=== PATIENT | male | born 1950 | race Caucasian/White ===

== ENCOUNTER 2022-02-05 17:35 | Observation (INO) ==
[2022-02-05] MEDS ORDERED: Iodixanol (CONTRAST) 320 MG/ML 100 ML SDV IV ONE (18:22)
[2022-02-05 18:30] LABS: ABS Eosinophils 0.2 10^3/ul (0-0.6); ABS Monocytes 0.5 10^3/ul (0-0.8); ABS Neutrophils 3.6 10^3/ul (1.5-7.7); Eosinophil % 3.4 %; Hematocrit 42 % (42-52); Hemoglobin 13.9 g/dL (14.0-18.0); Lymphocyte % 31.5 %; Mean Corpuscular HGB Conc 33 g/dL (31-36); Mean Corpuscular Hemoglobin 29 pg (27-31); Mean Corpuscular Volume 89 fL (80-94); Mean Platelet Volume 7.8 fL (7.4-10.4); Platelet Count 132 10^3/uL (150-450); Red Blood Count 4.71 10^6 /uL (4.18-5.48); Red Cell Distribution Width 14 % (10-15); White Blood Count 6.5 10^3/uL (3.5-10.8)
[2022-02-05 18:43] LABS: Activated Partial Thrombo Time 26.1 seconds (26.0-38.0); INR 1.02 (0.89-1.11)
[2022-02-05 19:12] LABS: ALT 22 U/L (7-52); Albumin 4.3 g/dL (3.2-5.2); Albumin/Globulin Ratio 1.9 (1-3); Alkaline Phosphatase 54 U/L (35-149); Blood Urea Nitrogen 17 mg/dL (6-24); CO2 Carbon Dioxide 27 mmol/L (22-32); Chloride 100 mmol/L (101-111); Cholesterol 152 mg/dL; Globulin 2.3 g/dL (2-4); Glucose 150 mg/dL (70-100); LDL Cholesterol 63 mg/dL; Sodium 135 mmol/L (135-145); Total Protein 6.6 g/dL (6.4-8.9); Triglycerides 321 mg/dL; eGFR CKD-EPI 70.4 (>60)
[2022-02-05 19:13] LABS: Anion Gap 8 mmol/L (2-11)
[2022-02-05 19:49] LABS: Urine Appearance Clear; Urine Bilirubin Negative (Negative); Urine Blood Negative (Negative); Urine Color Straw; Urine Glucose Negative (Negative); Urine Ketones Negative (Negative); Urine Nitrite Negative (Negative); Urine Protein Negative (Negative); Urine Urobilinogen Negative (Negative)
[2022-02-05 19:58] LABS: Urine Bacteria Absent (Absent); Urine Red Blood Cell Trace(0-2/hpf) (Absent); Urine White Blood Cell Trace(0-5/hpf) (Absent)
[2022-02-05] MEDS ORDERED: Enoxaparin 40 MG/0.4 ML SYR SUBCUT SCH (21:00)
[2022-02-05 21:24] LABS: Potassium Redraw 4.6 mmol/L (3.5-5.0)
[2022-02-05] MEDS ORDERED: Dextrose 50% Syringe 50 ml 25 GM/50 ML SYRINGE IV PUSH PRN (21:55)
[2022-02-06 13:50] VITALS: BP 149/81
[2022-02-08 15:10] LABS: Coagulation Factor V Assay 104 % (70 - 165)
[2022-02-10 19:11] LABS: Beta 2 Glycoprotein IgG <9.4 U/mL
[2022-02-11 17:25] LABS: Phospholipid Ab IgG < 9.4 GPL; Phospholipid Ab IgM, S < 9.4 MPL
== END 2022-02-06 13:59 | disposition home or self-care (01) ==
LOC: EDHOLD 17:35 → ED 17:35 → SUATTDRO 19:48 → MEDTELE 21:33
PROVIDERS: ADMIT Internal Medicine; ATTEND Internal Medicine

== ENCOUNTER 2022-08-07 05:46 | Observation (INO) ==
[~2022-08-07 05:46] MED LIST: Naloxone 0.4 mg VIAL 0.4 mg/ml 1 ml VIAL IV PRN; Ondansetron 4 mg VIAL 2 MG/ML 2 ml VIAL IV PRN; fentaNYL 100 mcg/2 ml 50 MCG/ML VIAL IV PRN
[2022-08-07] MEDS ORDERED: Buffered Lidocaine 1% SYRIN 1 ml INTRADERM ONE (06:00)
[2022-08-07] MEDS ORDERED: Lactated Ringers 1000 ml BAG 1,000 ML IV SCH ×2 (06:00→11:00)
[2022-08-07] MEDS ORDERED: ceFAZolin *3* GM in NS PREMIX 3 GM/100 ML BAG IV ONE (06:25)
[2022-08-07] MEDS ORDERED: Midazolam 2 mg/2 ml VIAL 1 mg/ml 2 ml VIAL (2 mg) ONE ×2 (06:32→07:37)
[2022-08-07] MEDS ORDERED: Bupivacaine 0.5% SDV PF 30ML VIAL ONE (06:33)
[2022-08-07] MEDS ORDERED: Dexamethasone IV 4 MG/ML VIAL 1 ml VIAL ONE (06:33)
[2022-08-07 06:54] LABS: Rapid COVID-19 Molecular Undetected (Undetected)
[2022-08-07] MEDS ORDERED: ROPIVACAINE 5 MG/ML 30 ML BTL (0.5%) ONE (07:03)
[2022-08-07] MEDS ORDERED: Propofol 10 MG/ML 20 ML BTL ONE ×3 (07:05→09:41)
[2022-08-07] MEDS ORDERED: fentaNYL 100 mcg/2 ml 50 MCG/ML VIAL ONE (07:41)
[2022-08-07] MEDS ORDERED: Bupivacaine-MPF SPINAL 7.5 MG/ML - 2ML AMP ONE (07:42)
[2022-08-07] MEDS ORDERED: Lidocaine 2% PF 5 ML VIAL ONE (07:52)
[2022-08-07] MEDS ORDERED: Magnesium Hydroxide LIQ 30 ML UDC PO PRN (10:22)
[2022-08-07] MEDS ORDERED: Ondansetron 4 mg VIAL 2 MG/ML 2 ml VIAL IV PRN (10:22)
[2022-08-07] MEDS ORDERED: Lactulose 30 ml UDC PO PRN (10:22)
[2022-08-07] MEDS ORDERED: Ondansetron ODT 4 mg TAB 4 MG TAB PO PRN (10:22)
[2022-08-07] MEDS ORDERED: Morphine 2 MG/ML SYRINGE IV PRN (10:22)
[2022-08-07] MEDS ORDERED: Dextrose 50% Syringe 50 ml 25 GM/50 ML SYRINGE IV PUSH PRN (11:53)
[2022-08-07] MEDS: ceFAZolin 1 GM ADVAN 1 GM in NS 0.9% 50 ML 50 ML IVPB SCH ×2 (15:22→23:24)
[2022-08-07] MEDS ORDERED: [UNRECOGNIZED DRUG - OTHER] PO SCH (21:00)
[2022-08-07] MEDS ORDERED: GLUCOS SUL PO SCH (21:00)
[2022-08-07] MEDS ORDERED: Psyllium PAK PO SCH (21:00)
[2022-08-07] MEDS: Magnesium Hydroxide LIQ 30 ML UDC PO SCH (21:05)
[2022-08-08 06:56] LABS: Hematocrit 36.4 % (38-53); Hemoglobin 12.5 g/dL (13.2-16.3); Mean Platelet Volume 7.7 fL (7.5-11.2); Platelet Count 131 10^3/uL (150-450)
[2022-08-08 07:43] LABS: Creatinine, Serum 1.02 mg/dL (0.67-1.17); Potassium 4.8 mmol/L (3.5-5.0); eGFR CKD-EPI 79.6 (>60)
[2022-08-08] MEDS: ceFAZolin 1 GM ADVAN 1 GM in NS 0.9% 50 ML 50 ML IVPB SCH (08:21)
[2022-08-08] MEDS: Magnesium Hydroxide LIQ 30 ML UDC PO SCH (08:27)
[2022-08-08] MEDS ORDERED: Cholecalciferol (VIT D3) 400 units TAB PO SCH (09:00)
[2022-08-08] MEDS ORDERED: Vitamin THERAPEUTIC TAB PO SCH (09:00)
[2022-08-08 10:34] VITALS: BP 116/72
== END 2022-08-08 13:33 | disposition home or self-care (01) ==
LOC: OR 05:46 → SSU 05:46
PROVIDERS: ADMIT Orthopaedic Surgery Adult Reconstructive Orthopaedic Surgery; ATTEND Orthopaedic Surgery Adult Reconstructive Orthopaedic Surgery